=== PATIENT | female | born 1940 | race Two or more races ===

== ENCOUNTER 2017-12-19 06:44 | Inpatient (IN) | payer OTHER ==
[~2017-12-19] VITALS: Ht 165.1 cm; Wt 125.0 kg
[~2017-12-19 06:44] MED LIST: ASPI81TA27 PO; CHOL20007 PO; LOSA-46 PO
[2017-12-19] MEDS ORDERED: ACETAMINOPHEN IV 100 ML IV ONE (07:21)
[2017-12-19] MEDS ORDERED: ceFAZolin 1GM/50ML 100 ML IV ONE (07:21)
[2017-12-19] MEDS ORDERED: CELECOXIB 100 MG CAP ONE (07:22)
[2017-12-19] MEDS ORDERED: PREGABALIN CAPSULE 75 MG CAP ONE (07:26)
[2017-12-19] MEDS ORDERED: MIDAZOLAM HCL 1MG/1ML-2 ML VIAL ONE (08:06)
[2017-12-19] MEDS ORDERED: PROPOFOL 10 MG/ML 20 ML IV ONE ×3 (08:06→10:21)
[2017-12-19] MEDS ORDERED: SODIUM CHLORIDE LOCK 10 ML ONE (08:06)
[2017-12-19] MEDS ORDERED: MORPHINE SULF(PF) 0.5MG/ML 10ML VIAL ONE ×2 (08:06→08:32)
[2017-12-19] MEDS ORDERED: ONDANSETRON HCL 4 MG/2 ML VIAL ONE (08:06)
[2017-12-19] MEDS ORDERED: fentaNYL CITRATE 100 MCG/2 ML VL ONE (08:06)
[2017-12-19] MEDS ORDERED: TRANEXAMIC ACID 20 ML ONE (08:28)
[2017-12-19] MEDS ORDERED: KETOROLAC TROMETH 30 MG/ML 1ML VIAL ONE (08:29)
[2017-12-19] MEDS ORDERED: VANCOMYCIN HCL 1000 MG VL ONE (08:29)
[2017-12-19] MEDS ORDERED: BUPIVACAINE W/ EPINEPH 0.25% INJ 50ML MDV ONE (08:33)
[2017-12-19] MEDS ORDERED: ePHEDrine SULFATE 50 MG/ML AMP IV PRN (10:15)
[2017-12-19] MEDS ORDERED: NALOXONE HCL 0.4 MG/ML VIAL IV PRN (10:15)
[2017-12-19] MEDS ORDERED: METOCLOPRAMIDE HCL 5MG/ml INJ 2ml VIAL IV ONE (10:15)
[2017-12-19] MEDS ORDERED: KETOROLAC TROMETH 30 MG/ML 1ML VIAL IV ONE (10:15)
[2017-12-19] MEDS ORDERED: diphenhdrAMINE HCL 50 MG/1 ML VL IV PRN (10:15)
[2017-12-19] MEDS ORDERED: fentaNYL CITRATE 100 MCG/2 ML VL IV ONE (11:00)
[2017-12-19] MEDS ORDERED: ONDANSETRON HCL 4 MG/2 ML VIAL IV PRN (11:30)
[2017-12-19] MEDS ORDERED: MORPHINE SULFATE 4 MG/ML SYR/VIAL IV PRN (11:30)
[2017-12-19] MEDS ORDERED: HYDROmorphone HCL 2 MG/ML VL IV PRN (11:30)
[2017-12-19] MEDS ORDERED: BISACODYL 5 MG EC TAB PO PRN (11:30)
[2017-12-19] MEDS ORDERED: ceFAZolin 1GM/50ML 50 ML IV SCH (11:30)
[2017-12-19] MEDS ORDERED: NITROGLYCERIN 0.4 MG SL TAB SL PRN (11:30)
[2017-12-19] MEDS ORDERED: ACETAMINOPHEN 325 MG TAB PO PRN (11:30)
[2017-12-19 13:13] VITALS: BP 91/52
[2017-12-19] MEDS ORDERED: NALOXONE HCL 0.4 MG/ML VIAL IV ONE (15:45)
[2017-12-19 16:30] VITALS: BP 84/52
[2017-12-19] MEDS: LACTATED RINGER'S 1,000 ML IV SCH ×2 (16:30→21:54)
[2017-12-19] MEDS: ceFAZolin 1GM/50ML 50 ML IV SCH ×2 (16:44→21:56)
[2017-12-19 17:59] VITALS: BP 91/52
[2017-12-19] MEDS: SODIUM CHLOR 0.9% PF (SALINE LOCK) 10ML VIAL/SYR IV SCH ×2 (21:54→22:06)
[2017-12-19] MEDS: DOCUSATE SOD 100 MG CAP PO SCH (21:56)
[2017-12-19 22:00] VITALS: BP 84/47
[2017-12-19 23:45] VITALS: BP 87/46
[2017-12-20] MEDS: OXYCODONE W/ ACETAMINOPHEN 5/325MG TABLET PO PRN ×2 (00:42→16:44)
[2017-12-20] MEDS: ceFAZolin 1GM/50ML 50 ML IV SCH (04:22)
[2017-12-20 05:00] VITALS: BP 79/43
[2017-12-20] MEDS: LACTATED RINGER'S 1,000 ML IV SCH ×2 (05:17→20:05)
[2017-12-20] MEDS: SODIUM CHLOR 0.9% PF (SALINE LOCK) 10ML VIAL/SYR IV SCH ×3 (05:17→21:05)
[2017-12-20 07:00] LABS: Albumin 2.4 g/dL (3.4-5.0); Calcium 7.4 mg/dL (8.5-10.1); Potassium 4.2 mmol/L (3.5-5.1)
[2017-12-20 07:02] LABS: BUN/Creatinine Ratio 11.8
[2017-12-20 07:03] LABS: Bilirubin, Total 0.5 mg/dL (0.2-1.0)
[2017-12-20 09:00] VITALS: BP 80/42
[2017-12-20 09:48] LABS: Hematocrit 26.7 % (36.0-46.0); Hemoglobin 9.1 g/dL (12.2-16.2)
[2017-12-20] MEDS: ASPirin-EC 81 mg tab PO SCH (10:00)
[2017-12-20] MEDS: ENOXAPARIN SOD 40 MG/0.4 ML SYRINGE SC SCH (10:00)
[2017-12-20] MEDS: LOSARTAN POTASSIUM 50 MG TAB PO SCH (10:00)
[2017-12-20] MEDS ORDERED: LOSARTAN POTASSIUM 50 MG PO SCH (10:00)
[2017-12-20] MEDS ORDERED: PATIENTS OWN MEDICATION (Cholecalciferol (Vitamin D3) 1 TAB) PO SCH (10:00)
[2017-12-20] MEDS: CHOLECALCIFEROL (VITD3) 1,000 UNIT TAB PO SCH (11:03)
[2017-12-20] MEDS: DOCUSATE SOD 100 MG CAP PO SCH ×2 (11:03→21:07)
[2017-12-20 13:00] VITALS: BP 93/46
[2017-12-20] MEDS: Ensure HIGH Protein Chocolate 8oz Bottle PO SCH ×2 (16:46→18:53)
[2017-12-20 17:00] VITALS: BP 110/77
[2017-12-20 22:00] VITALS: BP 102/52
[2017-12-21] MEDS: OXYCODONE W/ ACETAMINOPHEN 5/325MG TABLET PO PRN ×2 (03:19→07:52)
[2017-12-21] MEDS: LACTATED RINGER'S 1,000 ML IV SCH ×3 (03:20→23:23)
[2017-12-21 04:59] VITALS: BP 132/70
[2017-12-21] MEDS: SODIUM CHLOR 0.9% PF (SALINE LOCK) 10ML VIAL/SYR IV SCH ×3 (06:05→21:18)
[2017-12-21 08:23] VITALS: BP 105/61
[2017-12-21 08:25] LABS: BUN/Creatinine Ratio 19.1; Potassium 4.1 mmol/L (3.5-5.1)
[2017-12-21] MEDS: LOSARTAN POTASSIUM 50 MG TAB PO SCH (10:00)
[2017-12-21] MEDS: ENOXAPARIN SOD 40 MG/0.4 ML SYRINGE SC SCH (10:00)
[2017-12-21] MEDS: CHOLECALCIFEROL (VITD3) 1,000 UNIT TAB PO SCH (10:21)
[2017-12-21] MEDS: DOCUSATE SOD 100 MG CAP PO SCH ×2 (10:21→21:19)
[2017-12-21] MEDS: ASPirin-EC 81 mg tab PO SCH (10:22)
[2017-12-21] MEDS: Ensure HIGH Protein Chocolate 8oz Bottle PO SCH ×3 (10:24→17:14)
[2017-12-21 11:43] VITALS: BP_SYST 80; BP_SYST 89; BP_DIAS 39; BP_DIAS 47
[2017-12-21] MEDS ORDERED: KETOROLAC TROMETH 30 MG/ML 1ML VIAL IV SCH (12:00)
[2017-12-21] MEDS: KETOROLAC TROMETH 30 MG/ML 1ML VIAL IV SCH ×2 (12:06→17:14)
[2017-12-21 17:00] VITALS: BP 101/49
[2017-12-21 22:00] VITALS: BP 131/69
[2017-12-22] MEDS: KETOROLAC TROMETH 30 MG/ML 1ML VIAL IV SCH ×4 (00:29→17:11)
[2017-12-22 05:00] VITALS: BP 132/71
[2017-12-22 06:03] LABS: Basophils # (auto) 0 uL; Basophils % (auto) 0.3 % (0.0-2.0); Eosinophils # (auto) 0.1 uL; Eosinophils % (auto) 1.8 % (0.0-7.0); Hematocrit 23.9 % (36.0-46.0); Hemoglobin 8.5 g/dL (12.2-16.2); Lymphocytes # (auto) 0.6 uL; Lymphocytes % (auto) 10.7 % (10.0-50.0); Mean Corpuscular Hemoglobin 31.9 pg (28.0-32.0); Mean Corpuscular Hgb Conc. 35.5 g/dL (32.0-36.0); Mean Corpuscular Volume 89.9 fL (80.0-100.0); Monocytes # (auto) 0.4 uL; Neutrophils # (auto) 4.1 uL; Neutrophils % (auto) 79.2 % (37.0-80.0); Nucleated Red Blood Cells % 0.1 %; Platelet Count (auto) 120 10^3/uL (140-450); Red Blood Cells 2.66 10^6/uL (4.0-5.20); Red Cell Distribution Width 12.6 % (11.8-14.3); White Blood Cell 5.2 10^3/uL (4.4-10.8)
[2017-12-22] MEDS: SODIUM CHLOR 0.9% PF (SALINE LOCK) 10ML VIAL/SYR IV SCH ×2 (06:34→14:00)
[2017-12-22 08:00] VITALS: BP 118/80
[2017-12-22 09:00] VITALS: BP 118/80
[2017-12-22] MEDS: LACTATED RINGER'S 1,000 ML IV SCH (09:20)
[2017-12-22] MEDS: DOCUSATE SOD 100 MG CAP PO SCH (09:50)
[2017-12-22] MEDS: CHOLECALCIFEROL (VITD3) 1,000 UNIT TAB PO SCH (09:50)
[2017-12-22] MEDS: ASPirin-EC 81 mg tab PO SCH (09:50)
[2017-12-22] MEDS: LOSARTAN POTASSIUM 50 MG TAB PO SCH (10:00)
[2017-12-22] MEDS: ENOXAPARIN SOD 40 MG/0.4 ML SYRINGE SC SCH (10:00)
[2017-12-22] MEDS: Ensure HIGH Protein Chocolate 8oz Bottle PO SCH ×3 (10:00→17:11)
[2017-12-22 12:32] VITALS: BP 150/68
[2017-12-22 16:19] VITALS: BP 142/60
[2017-12-22 17:02] VITALS: BP 144/71
== END 2017-12-22 18:20 | DRG 470 ==
LOC: SUR 06:44 → EAST 06:45 → TELE-EAST 12-21 22:19
PROVIDERS: ADMIT Orthopaedic Surgery Adult Reconstructive Orthopaedic Surgery; ATTEND Orthopaedic Surgery Adult Reconstructive Orthopaedic Surgery
PROC: 0SR906Z Replacement of Right Hip Joint with Oxidized Zirconium on Polyethylene Synthetic Substitute, Open Approach (ICD-10-PCS; principal; 2017-12-19 08:39)
DX: M16.11 Unilateral primary osteoarthritis, right hip (principal); I10 Essential (primary) hypertension; E86.0 Dehydration; E88.09 Other disorders of plasma-protein metabolism, not elsewhere classified; Z79.899 Other long term (current) drug therapy; I95.89 Other hypotension
CPT/HCPCS: 36415; 72170; 73501; 80048; 80053; 82962; 83735; 85014; 85018; 85025; 86850; 86900; 86901; 97110; 97116; 97163; J0131; J0690; J1885; J2250; J2405; J2704

== ENCOUNTER 2020-06-03 14:01 | Emergency (ER) | payer OTHER ==
[~2020-06-03] VITALS: Ht 165.1 cm; Wt 69.4 kg
[~2020-06-03 14:01] MED LIST changes: -ASPI81TA27 PO; -LOSA-46 PO; +LOSA-69 PO
[2020-06-03 15:07] VITALS: BP 181/82
[2020-06-03] MEDS ORDERED: ACETAMINOPHEN/CODEINE#3 (300/30mg) TAB PO ONE (15:30)
[2020-06-03 16:13] LABS: Basophils # (auto) 0.1 10 ^3/uL (0-0.2); Basophils % (auto) 0.9 % (0.0-2.0); Eosinophils # (auto) 0.1 10 ^3/uL (0-0.8); Eosinophils % (auto) 1.4 % (0.0-7.0); Hematocrit 38.9 % (36.0-46.0); Hemoglobin 13.4 g/dL (12.2-16.2); Lymphocytes # (auto) 1.1 10 ^3/uL (0.4-5.4); Lymphocytes % (auto) 14.2 % (10.0-50.0); Mean Corpuscular Hemoglobin 30.8 pg (28.0-32.0); Mean Corpuscular Hgb Conc. 34.3 g/dL (32.0-36.0); Mean Corpuscular Volume 89.8 fL (80.0-100.0); Monocytes # (auto) 0.4 10 ^3/uL (0-1.3); Monocytes % (auto) 5.5 % (0.0-12.0); Neutrophils # (auto) 5.9 10 ^3/uL (1.6-8.6); Platelet Count (auto) 221 10^3/uL (140-450); Red Blood Cells 4.34 10^6/uL (4.0-5.20); Red Cell Distribution Width 13.2 % (11.8-14.3); White Blood Cell 7.5 10^3/uL (4.4-10.8)
[2020-06-03 16:48] LABS: Albumin 4.1 g/dL (3.4-5.0); Anion Gap 10 (5-15); Blood Urea Nitrogen 19 mg/dL (7-18); Calcium 9.3 mg/dL (8.5-10.1); Carbon Dioxide 25 mmol/L (21-32); Chloride 108 mmol/L (98-107); Glucose 111 mg/dL (74-106); Potassium 3.7 mmol/L (3.5-5.1); Sodium 143 mmol/L (136-145)
[2020-06-03 16:53] LABS: Alanine Aminotransferase 22 U/L (13-56); Alkaline Phosphatase 64 U/L (45-117); Aspartate Aminotransferase 12 U/L (15-37); Bilirubin, Total 0.5 mg/dL (0.2-1.0); GFR African American 98 mL/min; GFR Non-African American 81 mL/min; Total Protein 7.6 g/dL (6.4-8.2)
[2020-06-03] MEDS ORDERED: LIDOCAINE 1% HCL (LOCAL ANESTH.) INJ 20ML MDV IJ ONE (17:15)
== END 2020-06-03 18:17 | disposition home or self-care (01) ==
LOC: ER 14:01
DX: S01.81XA Laceration without foreign body of other part of head, initial encounter (principal); R55 Syncope and collapse; W19.XXXA Unspecified fall, initial encounter; Y93.89 Activity, other specified; Y92.89 Other specified places as the place of occurrence of the external cause; Y99.8 Other external cause status
CPT/HCPCS: 12011; 36415; 70450; 70486; 72125; 80053; 84484; 85025

== ENCOUNTER 2020-09-02 07:04 | Emergency (ER) | payer OTHER ==
[~2020-09-02] VITALS: Ht 165.1 cm; Wt 69.4 kg
[2020-09-02 07:39] VITALS: BP 177/70
== END 2020-09-02 08:27 | disposition home or self-care (01) ==
LOC: ER 07:04
DX: S01.511D Laceration without foreign body of lip, subsequent encounter (principal); I10 Essential (primary) hypertension; E11.9 Type 2 diabetes mellitus without complications; Z79.899 Other long term (current) drug therapy; W19.XXXD Unspecified fall, subsequent encounter